=== PATIENT | male | born 1975 | race Caucasian/White ===

== ENCOUNTER 2017-01-05 14:00 | Emergency (ER) | payer BC ==
[2017-01-05 14:22] VITALS: BP 121/73
--- NOTE | 2017-01-05 15:04 | UC ---
Abdominal Pain Male HPI - HPI Summary HPI Summary: About a month ago noticed occ LLQ pain, now pain is mostly in L lateral ribs, somewhat in the flank, worse with stress. Pain is not every day, when it "flares " it will last a few hours before resolving. Denies changes in appetite, blood in stool, fever, rash, or urinary pain/odor. Has had more frequent loose stools ; pain is not worse with lifting or BMs. Has noticed possible lymph node in L arm pit, unsure when that started. - History of Current Complaint Chief Complaint: UCAbdominalPain Stated Complaint: LEFT LOWER ABD PAIN Time Seen by Provider: 01/05/17 14:33 Hx Obtained From: Patient Onset/Duration: Gradual Onset, Lasting Weeks Timing: Constant Severity Initially: Mild Severity Currently: Mild Location: Discrete At: LUQ, Discrete At: LLQ Radiates: No Radiates to: Flank Character: Cramping Alleviating Factor(s): Rest Associated Signs And Symptoms: Positive: Chest Pain. Negative: Fever, Cough, Vomiting, Diarrhea, Penile Discharge - Allergies/Home Medications Allergies/Adverse Reactions: Allergies Allergy/AdvReac Type Severity Reaction Status Date / Time bee sting Allergy Difficulty Uncoded 01/05/17 14:11 Breathing PMH/Surg Hx/FS Hx/Imm Hx Previously Healthy: Yes - Surgical History Surgical History: None - Family History Known Family History: Positive: Hypertension - Social History Occupation: Employed Full-time Lives: With Family Alcohol Use: Occasionally Alcohol Amount: 10 Substance Use Type: None Smoking Status (MU): Never Smoked Tobacco - Immunization History Most Recent Influenza Vaccination: NONE [id number] Most Recent Tetanus Shot: UTD Most Recent Pneumonia Vaccination: n/a Review of Systems Constitutional: Negative Skin: Negative Eyes: Negative ENT: Negative Respiratory: Negative Cardiovascular: Negative Gastrointestinal: Abdominal Pain Genitourinary: Negative Motor: Negative Neurovascular: Negative Musculoskeletal: Arthralgia - L rib pain Neurological: Negative Psychological: Negative All Other Systems Reviewed And Are Negative: Yes Physical Exam Triage Information Reviewed: Yes Appearance: Well-Appearing, No Pain Distress, Well-Nourished Vital Signs: Initial Vital Signs Temp 98.2 F 01/05/17 14:11 Pulse 62 01/05/17 14:11 Resp 16 01/05/17 14:11 BP 121/73 01/05/17 14:11 Pulse Ox 98 01/05/17 14:11 Vital Signs Reviewed: Yes Eye Exam: Normal, Other - PERRL Eyes: Positive: Conjunctiva Clear ENT Exam: Normal ENT: Positive: Normal ENT inspection, Hearing grossly normal, Pharynx normal, TMs normal Dental Exam: Normal Neck exam: Normal Neck: Positive: Supple, Nontender, No Lymphadenopathy Respiratory Exam: Normal Respiratory: Positive: Chest non-tender, Lungs clear, Normal breath sounds, No respiratory distress, No accessory muscle use Cardiovascular Exam: Normal Cardiovascular: Positive: RRR, No Murmur Abdomen Description: Positive: No Organomegaly, Soft. Negative: CVA Tenderness (R), CVA Tenderness (L), Distended, Guarding, McBurney's Point Tenderness Musculoskeletal Exam: Other - L lateral ribs point tenderness Musculoskeletal: Positive: Strength Intact, ROM Intact Neurological Exam: Normal Neurological: Positive: Alert Psychological Exam: Normal Skin Exam: Normal - Additional Comments genital exam: skin normal, no lesions or drainage. Testes descended bilat, nontender, no mass. No hernias detected. Abd Pain Male Course/Dx - Differential Dx/Clinical Impression Provider Diagnoses: L abdominal pain. L chest wall pain. elevated blood pressure due to discomfort Discharge - Discharge Plan Condition: Stable Disposition: HOME Prescriptions: Omeprazole CAP* [Prilosec CAP* 20 MG] 20 mg PO DAILY #30 cap. Patient Education Materials: Chest Wall Pain (ED), Acute Abdominal Pain (ED) Referrals: Rosa PAYNE,Tay [Medical Doctor] - 1 Week Additional Instructions: If you develop fever, increasing pain, trouble breathing, or blood in your stool or urine, please go to the emergency department.
--- NOTE | 2017-01-05 16:07 | RAD ---
INDICATION: Left rib injury. COMPARISON: Comparison is made with a prior x-ray study of the chest from September 21, 2007. TECHNIQUE: 4 views of the left ribs and dual-energy PA views of the chest were obtained. FINDINGS: No fracture or significant focal osseous abnormality is seen. The heart is within normal limits in size. The lungs are clear. There is no evidence for pneumothorax or pleural effusion. IMPRESSION: NO EVIDENCE FOR FRACTURE.
[2017-01-06 13:27] LABS: Hematocrit 43 % (42-52); Hemoglobin 14.4 g/dl (14.0-18.0); Mean Corpuscular HGB Conc 34 g/dl (31-36); Mean Corpuscular Hemoglobin 30 pg (27-31); Mean Corpuscular Volume 89 fL (80-94); Mean Platelet Volume 8 um3 (7.4-10.4); Red Blood Count 4.82 10^6/ul (4.0-5.4); Red Cell Distribution Width 13 % (10.5-15); White Blood Count 7.8 10^3/ul (3.5-10.8)
[2017-01-06 13:35] LABS: Mono Internal Control QC Line Present
[2017-01-06 14:04] LABS: Albumin 4.6 g/dL (3.2-5.2); BUN/Creatinine Ratio 13.2 (8-20); Calcium 9.8 mg/dL (8.6-10.3); EGFR African American 99.5 (>60); EGFR Non-African American 77.4 (>60); Globulin 2.1 g/dL (2-4); Total Protein 6.7 g/dL (6.4-8.9)
== END 2017-01-05 15:56 | disposition home or self-care (01) ==
LOC: UCCORT 14:00
DX: R10.32 Left lower quadrant pain (principal); R07.89 Other chest pain; R03.0 Elevated blood-pressure reading, without diagnosis of hypertension
CPT/HCPCS: 36415; 80053; 81003; 85025; 86308; 99212; G0463